=== PATIENT | female | born 1980 | race Caucasian/White ===

== ENCOUNTER 2017-02-05 08:35 | Emergency (ER) | payer OTHER ==
[~2017-02-05] VITALS: Ht 157.5 cm; Wt 71.7 kg
[2017-02-05 08:37] VITALS: BP 120/77
[2017-02-05] MEDS ORDERED: DEXAMETHASONE 4 MG/ML, 5ML ONE (09:06)
[2017-02-05] MEDS ORDERED: DEXAMETHASONE 4 MG/ML, 1ML PO ONE (09:30)
== END 2017-02-05 09:29 | disposition home or self-care (01) ==
LOC: ED 09:10
DX: J03.00 Acute streptococcal tonsillitis, unspecified (principal)
CPT/HCPCS: 99283; J1100

== ENCOUNTER 2018-08-17 22:38 | Emergency (ER) | payer SELFPAY ==
[~2018-08-17] VITALS: Ht 157.5 cm; Wt 71.6 kg
[2018-08-17 22:45] VITALS: BP 126/82
[2018-08-17] MEDS ORDERED: SODIUM CHLORIDE FLUSH 10ML SYR IVF ONE (23:00)
[2018-08-17] MEDS ORDERED: ONDANSETRON 2MG/ML, 2ML IVPush ONE (23:00)
[2018-08-17] MEDS ORDERED: HYDROmorphone 2 MG/ML, 1ML IVPush PRN (23:00)
--- NOTE | 2018-08-17 23:08 | NUR ---
pt resting in gurney in gown at this time. pt in distress due to pain. dr. juárez at bedside. verbal orders received. iv access established and labs drawn and sent to lab.
[2018-08-17] MEDS ORDERED: ONDANSETRON 2MG/ML, 2ML ONE (23:11)
[2018-08-17] MEDS ORDERED: HYDROmorphone 2 MG/ML, 1ML ONE (23:11)
[2018-08-17 23:22] LABS: BASOPHILS # (AUTO) 0.05 x10^3/uL (0-0.1); BASOPHILS % (AUTO) 1 % (0-1); EOSINOPHILS # (AUTO) 0.17 x10^3/uL (0-0.4); EOSINOPHILS % (AUTO) 2 % (1-7); LYMPHOCYTES # (AUTO) 3.19 x10^3/uL (1-3.4); LYMPHOCYTES % (AUTO) 34 % (22-44); MD NO; MEAN CORPUSCULAR HEMOGLOBIN 27.7 pg (27.0-34.8); MEAN CORPUSCULAR HGB CONC 33.3 g/dL (32.4-35.8); MEAN CORPUSCULAR VOLUME 83.1 fL (80-100); MEAN PLATELET VOLUME 10.5 fL (7.4-10.4); MONOCYTES # (AUTO) 0.75 x10^3/uL (0.2-0.8); MONOCYTES % (AUTO) 8 % (2-9); NEUTROPHILS # (AUTO) 5.15 x10^3/uL (1.8-6.8); NEUTROPHILS % (AUTO) 55 % (42-75); PLATELET COUNT 231 x10^3/uL (130-400); RED BLOOD COUNT 5.16 x10^6/uL (3.82-5.3)
[2018-08-17 23:31] LABS: ALBUMIN 4.3 g/dL (3.4-5.0); ANION GAP 9 mmol/L (5-15); CALCIUM 9.6 mg/dL (8.5-10.1); CHLORIDE 106 mmol/L (98-107)
[2018-08-17 23:36] LABS: ALANINE AMINOTRANSFERASE 27 U/L (12-78); ALKALINE PHOSPHATASE 65 U/L (45-117); BILIRUBIN,TOTAL 0.5 mg/dL (0.2-1.0); CREATININE 0.97 mg/dL (0.55-1.02); TOTAL PROTEIN 8.6 g/dL (6.4-8.2)
--- NOTE | 2018-08-17 23:46 | NUR ---
US AT BS AT THIS TIME.
[2018-08-18] MEDS ORDERED: SODIUM CHLORIDE 0.9% 1,000ML IVBOLUS ONE
--- NOTE | 2018-08-18 01:28 | NUR ---
PT D/C WITH D/C SUMMARY AND SCRIPTS. CONTROLLED SUBSTANCE SHEET OBTAINED AND PLACED WITH PT CHART. PT DENIES ANY OTHER NEEDS PERTAINING TO THIS VISIT AND AMBULATES TO REGISTRATION DESK WITH STEADY GAIT. ALL QUESTIONS ANSWERED.
== END 2018-08-18 01:31 | disposition home or self-care (01) ==
LOC: ED 23:29
DX: K80.20 Calculus of gallbladder without cholecystitis without obstruction (principal); R11.0 Nausea
CPT/HCPCS: 36415; 76700; 80053; 83690; 84703; 85025; 96374; 96375; 99284; J1170; J2405

== ENCOUNTER 2019-09-24 22:48 | Emergency (ER) | payer MEDICAID ==
[~2019-09-24] VITALS: Ht 157.5 cm; Wt 69.9 kg
[2019-09-25] MEDS ORDERED: ONDANSETRON 2MG/ML, 2ML IVPush ONE
[2019-09-25] MEDS ORDERED: HYDROmorphone 2 MG/ML, 1ML IVPush PRN
[2019-09-25] MEDS ORDERED: SODIUM CHLORIDE FLUSH 10ML SYR IVF ONE
[2019-09-25] MEDS ORDERED: HYDROmorphone 1 MG/ML, 1ML INJ ONE (00:02)
[2019-09-25] MEDS ORDERED: ONDANSETRON 2MG/ML, 2ML ONE (00:02)
[2019-09-25 00:28] LABS: BASOPHILS # (AUTO) 0.04 x10^3/uL (0-0.1); BASOPHILS % (AUTO) 1 % (0-1); EOSINOPHILS # (AUTO) 0.15 x10^3/uL (0-0.4); EOSINOPHILS % (AUTO) 2 % (1-7); LYMPHOCYTES # (AUTO) 1.94 x10^3/uL (1-3.4); LYMPHOCYTES % (AUTO) 24 % (22-44); MD NO; MEAN CORPUSCULAR HEMOGLOBIN 27.1 pg (27.0-34.8); MEAN CORPUSCULAR HGB CONC 32.8 g/dL (32.4-35.8); MEAN CORPUSCULAR VOLUME 82.6 fL (80-100); MEAN PLATELET VOLUME 10.3 fL (7.4-10.4); MONOCYTES # (AUTO) 0.62 x10^3/uL (0.2-0.8); MONOCYTES % (AUTO) 8 % (2-9); NEUTROPHILS # (AUTO) 5.43 x10^3/uL (1.8-6.8); NEUTROPHILS % (AUTO) 66 % (42-75); PLATELET COUNT 207 x10^3/uL (130-400); RED BLOOD COUNT 4.83 x10^6/uL (3.82-5.3); RED CELL DISTRIBUTION WIDTH 13.9 % (9.6-15.2)
[2019-09-25 00:33] LABS: ALANINE AMINOTRANSFERASE 27 U/L (12-78); ALBUMIN 4.1 g/dL (3.4-5.0); ANION GAP 6 mmol/L (5-15); CALCIUM 8.8 mg/dL (8.5-10.1); CHLORIDE 110 mmol/L (98-107)
[2019-09-25 00:35] LABS: ALKALINE PHOSPHATASE 43 U/L (45-117); BILIRUBIN,TOTAL 0.3 mg/dL (0.2-1.0); TOTAL PROTEIN 7.8 g/dL (6.4-8.2)
[2019-09-25 01:29] VITALS: BP 102/65
== END 2019-09-25 01:43 | disposition home or self-care (01) ==
LOC: ED 23:35
DX: K80.20 Calculus of gallbladder without cholecystitis without obstruction (principal)
CPT/HCPCS: 36415; 76700; 80053; 83690; 85025; 96374; 96375; 99284; J1170; J2405

== ENCOUNTER 2020-03-15 00:14 | Emergency (ER) | payer OTHER ==
[~2020-03-15] VITALS: Ht 157.5 cm; Wt 71.8 kg
[2020-03-15 00:25] VITALS: BP 111/79
[2020-03-15] MEDS ORDERED: HYDROmorphone 1 MG/ML, 1ML INJ IM PRN (01:00)
[2020-03-15] MEDS ORDERED: HYDROmorphone 1 MG/ML, 1ML INJ ONE (01:04)
[2020-03-15 01:08] LABS: BASOPHILS % (AUTO) 1 % (0-1); EOSINOPHILS % (AUTO) 3 % (1-7); LYMPHOCYTES % (AUTO) 34 % (22-44); MEAN CORPUSCULAR HEMOGLOBIN 27.7 pg (27.0-34.8); MEAN PLATELET VOLUME 9.2 fL (7.4-10.4); MONOCYTES % (AUTO) 10 % (2-9); NEUTROPHILS % (AUTO) 52 % (42-75); PLATELET COUNT 229 x10^3/uL (130-400); RED BLOOD COUNT 4.53 x10^6/uL (3.82-5.3)
[2020-03-15 01:18] LABS: MD NO
[2020-03-15 01:21] LABS: ALANINE AMINOTRANSFERASE 22 U/L (12-78); ALBUMIN 3.6 g/dL (3.4-5.0); ANION GAP 7 mmol/L (5-15); CALCIUM 8.4 mg/dL (8.5-10.1); CHLORIDE 109 mmol/L (98-107); CREATININE 0.73 mg/dL (0.55-1.02)
[2020-03-15 01:25] LABS: ALKALINE PHOSPHATASE 60 U/L (45-117); BILIRUBIN,TOTAL 0.2 mg/dL (0.2-1.0); TOTAL PROTEIN 7.2 g/dL (6.4-8.2)
--- NOTE | 2020-03-15 01:37 | NUR ---
pt resting in bed, pt has unlabored equal breaths. pt a/o x4. pt medicated per apr. pt on monitor with vss. pt has no current wants or needs at this time.
== END 2020-03-15 02:43 | disposition home or self-care (01) ==
LOC: ED 01:51
DX: K80.20 Calculus of gallbladder without cholecystitis without obstruction (principal); R10.12 Left upper quadrant pain; R10.11 Right upper quadrant pain; R10.13 Epigastric pain
CPT/HCPCS: 36415; 76700; 80053; 83690; 84703; 85025; 96372; 99284; J1170

== ENCOUNTER → 2020-04-28 | Outpatient (CLI) | payer OTHER ==
[~2020-04-28] MED LIST: NONE PER PT
== END | disposition home or self-care (01) ==
LOC: STAR 15:07
PROVIDERS: ATTEND Surgery
DX: Z20.822 Contact with and (suspected) exposure to COVID-19 (principal)
CPT/HCPCS: U0003

== ENCOUNTER 2020-05-04 06:03 | Day surgery (SDC) | payer OTHER ==
[~2020-05-04] VITALS: Ht 157.5 cm; Wt 72.0 kg
[2020-05-04 06:50] VITALS: BP 112/78
[2020-05-04] MEDS ORDERED: BUPIVACAINE/PF 0.5% ONE (06:58)
[2020-05-04] MEDS ORDERED: EPINEPHRINE 1 MG/ML, 1ML ONE (06:59)
[2020-05-04] MEDS ORDERED: LIDOCAINE-MPF 1%, 2ML INFIL ONE (07:00)
[2020-05-04] MEDS ORDERED: LACTATED RINGERS 1,000 ML IV SCH (07:00)
[2020-05-04] MEDS ORDERED: CHLORHEXIDINE 15 ML UDC PO ONE (07:00)
[2020-05-04] MEDS ORDERED: MIDAZOLAM 1 MG/ML, 2ML ONE (07:15)
[2020-05-04] MEDS ORDERED: FENTANYL PF 250 MCG/5ML ONE (07:15)
[2020-05-04] MEDS ORDERED: NEOSTIGMINE 1 MG/ML, 10ML ONE (07:45)
[2020-05-04] MEDS ORDERED: ROCURONIUM 10MG/ML,5ML ONE (07:45)
[2020-05-04] MEDS ORDERED: PROPOFOL 10 MG/ML, 20ML ONE (07:45)
[2020-05-04] MEDS ORDERED: CEFAZOLIN 1,000 MG ONE (07:45)
[2020-05-04] MEDS ORDERED: ONDANSETRON 2MG/ML, 2ML ONE (07:45)
[2020-05-04] MEDS ORDERED: SUCCINYLCHOLINE 20 MG/ML, 10ML ONE (07:45)
[2020-05-04] MEDS ORDERED: GLYCOPYRROLATE 0.2MG/1ML, 5ML ONE (07:45)
[2020-05-04] MEDS ORDERED: SUGAMMADEX 200 MG/2 ML IVPush ONE (07:51)
[2020-05-04] MEDS ORDERED: PROMETHAZINE 25 MG/ML, 1ML IVPush PRN (08:00)
[2020-05-04] MEDS ORDERED: LABETALOL 5MG/ML, 20ML IV PRN (08:00)
[2020-05-04] MEDS ORDERED: FENTANYL PF 100 MCG/2ML IV PRN (08:00)
[2020-05-04] MEDS ORDERED: HYDROmorphone 1 MG/ML, 1ML INJ IVPush PRN (08:00)
[2020-05-04] MEDS ORDERED: MEPERIDINE/PF 25MG/0.5ML IVPush PRN (08:00)
[2020-05-04] MEDS ORDERED: ACETAMINOPHEN 325 MG TABLET PO PRN (08:00)
[2020-05-04] MEDS ORDERED: ONDANSETRON 2MG/ML, 2ML IVPush PRN (08:00)
[2020-05-04] MEDS ORDERED: ALBUTEROL SULFATE 2.5 MG/3 ML NPPB PRN (08:00)
[2020-05-04] MEDS ORDERED: FENTANYL PF 100 MCG/2ML ONE (08:00)
[2020-05-04] MEDS ORDERED: PROMETHAZINE 25 MG SUPP PR PRN (08:00)
[2020-05-04] MEDS ORDERED: LORazepam 2 MG/ML, 1ML ONE (08:00)
[2020-05-04] MEDS ORDERED: HALOPERIDOL 5 MG/ML IV PRN (08:00)
[2020-05-04] MEDS ORDERED: METHOCARBAMOL 1,000 MG in DEXTROSE 5% 100 ML IV PRN (08:00)
[2020-05-04] MEDS ORDERED: hydrALAzine 20 MG/ML, 1ML IV PRN (08:00)
[2020-05-04] MEDS: LORazepam 2 MG/ML, 1ML IVPush PRN ×2 (08:03→08:17)
[2020-05-04] MEDS ORDERED: PROPOFOL 50 ML ONE (08:24)
[2020-05-04] MEDS ORDERED: ACETAMINOPHEN 650 MG/20.3 ML UDC ONE (08:29)
[2020-05-04] MEDS ORDERED: OXYcodone 5 MG/5 ML ORAL.SOL UDC ONE (08:29)
[2020-05-04] MEDS ORDERED: MEPERIDINE/PF 25MG/ML,1ML ONE (08:29)
[2020-05-04] MEDS: OXYcodone 5 MG/5 ML ORAL.SOL UDC PO PRN ×2 (08:34→09:23)
[2020-05-04] MEDS ORDERED: HYDR-1067 PO (09:09)
[2020-05-04] MEDS ORDERED: DEXAMETHASONE 4 MG/ML, 1ML ONE (16:01)
== END 2020-05-04 10:20 | disposition home or self-care (01) ==
LOC: OUT 06:03
PROVIDERS: ATTEND Surgery
DX: K80.10 Calculus of gallbladder with chronic cholecystitis without obstruction (principal)
CPT/HCPCS: 47562; 88304; J0171; J0330; J0690; J1100; J2060; J2175; J2250; J2405; J2704; J2710; J3010; J7120